=== PATIENT | male | born 1980 | race Caucasian/White ===

== ENCOUNTER 2020-01-01 00:30 | Emergency (ER) | payer SELFPAY ==
[~2020-01-01] VITALS: Ht 172 cm; Wt 84.0 kg
[2020-01-01] MEDS ORDERED: LIDOCAINE 1% INJ 20 ML 20 ML VIAL ONE (00:57)
[2020-01-01] MEDS ORDERED: LIDOCAINE 1% INJ 20 ML 20 ML VIAL INJ ONE (01:00)
[2020-01-01] MEDS ORDERED: TRIM/SULFAMETH 160/800 (SEPTRA DS) TAB PO ONE (01:45)
[2020-01-01] MEDS ORDERED: TETANUS,DIPTH,PERTUSS P/F (BOOSTRIX) 0.5 ML VIAL IM ONE ×2 (01:45)
[2020-01-01] MEDS ORDERED: SULF1TAB35 PO (01:46)
--- NOTE | 2020-01-01 01:47 | ED Upper Extremity ---
General Chief Complaint: Upper Extremity Stated Complaint: LEFT HAND RING FINGER INJURY Nursing Triage Note: Pt ambulates to [facility] with c/o left ring finger injury after reaching on top of garage door and smashed his finger appprox 1700 last night. Bleeding is controlled on arrival, pt states it's painful. Nursing Sepsis Screen: No Definite Risk Source: patient, family Exam Limitations: no limitations, language barrier History of Present Illness Date Seen by Provider: Jan 01, 2020 Time Seen by Provider: 00:51 Initial Comments This 39-year-old gentleman presents to the emergency room with injury to the left distal fourth finger when it was pinched between the 2 segments of a garage door as he pulled down. He has a flap laceration, pain, and swelling. Allergies and Home Medications Allergies Coded Allergies: No Known Drug Allergies (Unverified , 01/01/20) Home Medications Sulfamethoxazole/Trimethoprim 1 Each Tablet, 1 EACH PO BID Prescribed by: JEANIE FELIPE on 01/01/20 0146 Patient Home Medication List Home Medication List Reviewed: Yes Review of Systems Constitutional: no symptoms reported EENTM: no symptoms reported Respiratory: no symptoms reported Cardiovascular: no symptoms reported Gastrointestinal: no symptoms reported Genitourinary: no symptoms reported Musculoskeletal: see HPI Skin: see HPI Psychiatric/Neurological: No Symptoms Reported Past Otmhvrg-Cssqbk-Kkuyzz Hx Past Med/Social Hx: Reviewed Nursing Past Med/Soc Hx Patient Social History Alcohol Use: Denies Use Recreational Drug Use: No Smoking Status: Never a Smoker 2nd Hand Smoke Exposure: No Recent Foreign Travel: No Contact w/Someone Who Travel: No Recent Infectious Disease Expo: No Recent Hopitalizations: No Seasonal Allergies Seasonal Allergies: No Past Medical History Surgeries: No Respiratory: No Cardiac: No Neurological: No Genitourinary: No Gastrointestinal: No Musculoskeletal: No Endocrine: No HEENT: No Cancer: No Psychosocial: No Integumentary: No Blood Disorders: No Physical Exam Vital Signs Vital Signs - First Documented 01/01/20 01/01/20 00:52 02:14 Temp 36.7 Pulse 74 Resp 19 B/P (MAP) 136/86 (103) Pulse Ox 98 O2 Delivery Room Air Capillary Refill : Less Than 3 Seconds Height, Weight, BMI Height: '" Weight: lbs. oz. kg; 28.00 BMI Method: General Appearance: WD/WN, no apparent distress HEENT: normal ENT inspection Wrist: Yes normal inspection, Yes no evidence of injury Hand: Left (Tenderness, swelling, and laceration to the distal phalanx. Distal capillary refill and sensation intact.), limited ROM (Secondary to pain and swelling) Neurologic/Tendon: normal sensation, normal motor functions Neurologic/Psychiatric: electroencephalogram technologist II-XII nml as tested, no motor/sensory deficits, alert, normal mood/affect, oriented x 3 Skin: normal color, warm/dry, other (1 cm laceration to the distal phalanx of the fourth finger) Procedures/Interventions Other Wound Location Left fourth finger Wound Length (cm): 1 Wound's Depth, Shape: flap, sub Q Wound Explored: clean Irrigated w/ Saline (ccs): 500 Betadine Prep?: Yes Anesthesia: 1% Lidocaine Volume Anesthetic (ccs): 3 Suture: Prolene Suture Size: 5-0 Number of Sutures: 2 Sterile Dressing Applied?: Yes Progress Digital block was performed. Wound cleaned with chlorhexidine and normal saline and then rinsed with normal saline. Betadine prep was applied and flap was approximated with Prolene sutures in an interrupted fashion. Wound was dressed with tube gauze by nursing staff. Progress/Results/Core Measures Results/Orders My Orders Medications Given in ED Vital Signs/I&O Blood Pressure Mean: 103 Progress Progress Note : Progress Note Wound was sutured. Bactrim and tetanus immunization were given for prophylaxis. Diagnostic Imaging Diagonstic Imaging: Xray Plain Films/CT/US/NM/MRI: hand Comments Hand x-ray viewed by me. Report not yet available. Suspicion for a very small avulsion-like fracture of the distal phalanx. Departure Impression Primary Impression: Finger laceration Qualified Codes: S61.215A - Laceration without foreign body of left ring finger without damage to nail, initial encounter Additional Impression: Finger fracture Qualified Codes: S62.635B - Displaced fracture of distal phalanx of left ring finger, initial encounter for open fracture Disposition: HOME, SELF-CARE Condition: Improved Departure-Patient Inst. Decision time for Depature: 01:43 Referrals: [facility] (PCP/Family) Primary Care Physician Patient Instructions: Laceration Repair With Stitches (DC) Add. Discharge Instructions: Keep the wound clean and dry except for normal handwashing and showering. Watch the wound for signs of infection such as increasing redness, puslike drainage, increasing pain, or fever. Return to care if you notice these symptoms. Cover the wound when active or in dirty environments. Otherwise you may leave the wound open to air. Return in about 7 days to have the sutures removed. You may take ibuprofen up to 600 mg every 6 hours and/or Tylenol (acetaminophen) up to 1000 mg every 6 hours as needed for pain. Elevation and icing in 20 minute intervals may also help pain and swelling. Use the AlumaFoam splints to protect the finger as much as possible over the next 6 weeks. You may bend the splint to fit better if necessary. All discharge instructions reviewed with patient and/or family. Voiced understanding. Scripts Sulfamethoxazole/Trimethoprim (Bactrim Ds Tablet) 1 Each Tablet 1 EACH PO BID, #14 TAB Prov: JEANIE NICHOLE MD 01/01/20 JEANIE NICHOLE MD Jan 01, 2020 01:47
[2020-01-01 02:14] VITALS: BP 133/87
--- NOTE | 2020-01-01 07:47 | Diagnostic Imaging Report ---
INDICATION: Left hand pain. FINDINGS: 3 views. There are no fractures or dislocation. Articulating surfaces are smooth. Radiocarpal joints in good alignment. IMPRESSION: Negative left hand. Dictated by: Dictated on workstation # [id number]
== END 2020-01-01 02:04 | disposition home or self-care (01) ==
LOC: ER 00:34
DX: S62.635A Displaced fracture of distal phalanx of left ring finger, initial encounter for closed fracture (principal); S61.215A Laceration without foreign body of left ring finger without damage to nail, initial encounter; W23.0XXA Caught, crushed, jammed, or pinched between moving objects, initial encounter
CPT/HCPCS: 73140; 90715